=== PATIENT | female | born 1985 | race Caucasian/White ===

== ENCOUNTER 2018-04-21 07:30 | Emergency (ER) | payer BC ==
[~2018-04-21] VITALS: Ht 172.7 cm; Wt 81.2 kg
[2018-04-21 07:40] VITALS: TEMP 36.9; Ht 172.7 cm; Wt 81.2 kg
[2018-04-21] MEDS ORDERED: PRENTAB26 PO (08:02)
[2018-04-21] MEDS ORDERED: SYMIN160 INH (08:03)
[2018-04-21] MEDS ORDERED: VNTHFA/IN INH (08:03)
[2018-04-21 08:50] LABS: HEMATOCRIT 44.2 % (37-47); HEMOGLOBIN 15.2 g/dL (12.0-16.0); MEAN CELL VOLUME 91.3 fL (80-100); MEAN CORPUSCULAR HEMOGLOBIN 31.4 pg (25-34); MEAN CORPUSCULAR HGB CONC 34.4 g/dl (32-36); MEAN PLATELET VOLUME 11.3 fL (7.4-10.4); PLATELET COUNT 193 K/uL (130-400); RED CELL DISTRIBUTION WIDTH CV 12.5 % (11.5-14.5); RED CELL DISTRIBUTION WIDTH SD 42.1 fL (36.4-46.3); WHITE BLOOD COUNT 6.49 K/uL (4.8-10.8)
[2018-04-21 09:10] LABS: CALCIUM 9.5 mg/dl (8.5-10.1); CREATININE 1.01 mg/dl (0.60-1.20); POTASSIUM 3.5 mmol/L (3.5-5.1)
--- NOTE | 2018-04-21 10:10 | DIAGNOSTIC IMAGING REPORT ---
ULTRASOUND CLINICAL HISTORY: with vaginal bleeding. History of ectopic . COMPARISON STUDY: No previous studies for comparison. TECHNIQUE: Transabdominal and transvaginal sonography of the pelvis was performed. FINDINGS: The uterus measures 9.4 x 5 x 4.2 cm. The endometrium is thickened, measuring 2.1 cm in thickness. No intrauterine gestational sac is identified. The left ovary was not visualized. The right ovary is normal, measuring 2.7 x 2.6 x 1.9 cm. There is color flow within the right ovary. There is a possible right ovarian corpus luteal cyst. No adnexal masses were identified. IMPRESSION: 1. No intrauterine gestational sac identified. Thickened endometrium. Given positive test, differential considerations include a normal early intrauterine gestation, sonographically occult ectopic and missed spontaneous . Correlation with beta hCG levels is recommended. 2. Nonvisualization of the left ovary. 3. Suspected right ovarian corpus luteal cyst. Electronically signed by: Sung Ahn M.D. 04/21/2018 10:08 AM Dictated Date/Time: 04/21/2018 10:04 AM
--- NOTE | 2018-04-21 11:11 | EMERGENCY ROOM VISIT NOTE ---
ED Visit Note First contact with patient: 07:47 CHIEF COMPLAINT: 5 weeks , vaginal discharge this morning HISTORY OF PRESENT ILLNESS: Patient is a 32-year-old female with past medical history significant for asthma, Ab1 who presents emergency department for evaluation of brown watery vaginal discharge that started acutely this morning. Patient reports that her last menstrual period was 03/17/18. She had a positive home test at home and at her clip loading machine feeder. They have been following her serum hCG levels and it was 1361 04/19/2018. She does have a history of an ectopic, unknown side, which was treated with methotrexate she reports this was roughly 5 years ago. 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 She had some spotting earlier this week but her clip loading machine feeder was not concerned. This morning, she had a purpleish brown watery discharge with weightbearing. She is wearing a panty liner. She denies any real significant pelvic discomfort. She feels some pulling on both the right and the left, but nothing really localized. She rates her discomfort a 2/10. She denies any urinary symptoms. She reports that her blood type is O+. REVIEW OF SYSTEMS: Review of systems as per HPI. All other systems reviewed were negative. 10 systems reviewed. PMH: Electronic medical records are reviewed and summarized as above/below. See Problem List. SOCIAL HISTORY: Patient lives at home with her family. Employed. She does not smoke. PHYSICAL EXAM: Vital Signs: Reviewed Nurse's notes. CONSTITUTIONAL: Patient is a well-appearing 32-year-old female who is awake and alert and in no acute distress. EYES: Pupils equal, round, reactive to light and accommodation. EOMs intact without nystagmus. Sclera are anicteric. ENT: Tympanic membranes intact, with normal landmarks. External canals are clear. Oral and nasopharynx are clear. Mucous membranes are moist, no lesions , tongue and gums appear normal. CARDIOVASCULAR: Regular rate and rhythm, with normal S1 and S2, no murmur or gallop or rub is heard. No carotid bruits auscultated. No JVD. Peripheral pulses easily palpable. RESPIRATORY: Breath sounds equal and clear to auscultation without wheezes, rales, or rhonchi heard. Full and equal chest expansion without accessory muscle use or retractions. ABDOMEN: Bowel sounds are present. Abdomen is soft, nondistended, nontender to percussion or palpation throughout. No guarding, rebound or rigidity. INTEGUMENTARY: No lesions or rash, normal skin turgor. LYMPH: No lymphadenopathy. EMERGENCY DEPARTMENT COURSE: The patient was seen and evaluated as above. She has a history of an early ectopic treated with methotrexate. She has been followed by her clip loading machine feeder with hCG levels, and is scheduled to have another hCG checked in 48 hours. She has developed some abdominal watery discharge with wiping this morning. She has some pulling in the right lower abdomen but no localized tenderness to palpation on exam. IV lock was initiated and laboratory studies were collected. CBC, BMP, quantitative hCG, urinalysis and type and Rh were drawn. Pelvic ultrasound was ordered. Laboratory studies revealed a normal white count. H&H is not indicative of anemia. Electrolytes are within normal limits. Her quantitative hCG is 3339. Blood type is O+. Urinalysis notes 2+ occult blood, but no RBCs, small amount of leuk esterase and WBCs. There is 2+ bacteria, but greater than 30 epithelial cells which is likely indicative of contamination. Urine culture was ordered and is pending however. Pelvic ultrasound was obtained. There was no intrauterine gestation sac identified. Differential diagnoses included normal early intrauterine gestation, sonographically occluded ectopic or a missed spontaneous . She did also have a small suspected corpus luteal cyst on the right. No other adnexal masses were identified. All laboratory and diagnostic imaging studies were reviewed with the patient at length. She has been followed by gynecology. Her hCG levels do appear to be increasing appropriately. She has a benign abdominal exam, and does not have any findings on ultrasound to identify an ectopic at this time. Close follow- up with her clip loading machine feeder was reinforced. She has an appointment to have an hCG level checked again in 48 hours. Ectopic and bleeding precautions were outlined with the patient at length. The patient was discharged home, with strict instructions to follow-up with [facility] as she has scheduled. Differential diagnoses entertained included implantation bleed, missed , spontaneous , subchorionic hemorrhage, menses, ectopic , among others. Medication reconciliation: I attest that I have personally reviewed the patient' s current medication list. Blood pressure screening : Patient was found to have normal blood pressure on screening and does not require follow-up. ULTRASOUND CLINICAL HISTORY: with vaginal bleeding. History of ectopic . COMPARISON STUDY: No previous studies for comparison. TECHNIQUE: Transabdominal and transvaginal sonography of the pelvis was performed. FINDINGS: The uterus measures 9.4 x 5 x 4.2 cm. The endometrium is thickened, measuring 2.1 cm in thickness. No intrauterine gestational sac is identified. The left ovary was not visualized. The right ovary is normal, measuring 2.7 x 2.6 x 1.9 cm. There is color flow within the right ovary. There is a possible right ovarian corpus luteal cyst. No adnexal masses were identified. IMPRESSION: 1. No intrauterine gestational sac identified. Thickened endometrium. Given positive test, differential considerations include a normal early intrauterine gestation, sonographically occult ectopic and missed spontaneous . Correlation with beta hCG levels is recommended. 2. Nonvisualization of the left ovary. 3. Suspected right ovarian corpus luteal cyst. Problem List Medical Problems: (1) Asthma Status: Chronic Surgical Problems: (1) History of section Status: Resolved Current/Historical Medications Scheduled Budesonide/Formoterol Fumarate (Symbicort 160/4.5 Inhaler ), 2 PUFFS INH BID Multivit/Min/Iron/Fol Ac/Pren ( Vitamin), 1 TAB PO DAILY Scheduled PRN Albuterol Hfa (Ventolin Hfa), 2 PUFFS INH Q6H PRN for SOB/Wheezing Allergies Coded Allergies: No Known Allergies (Unverified , 04/21/18) Vital Signs Date Time Temp Pulse Resp B/P (MAP) Pulse Ox O2 Delivery O2 Flow Rate FiO2 04/21/18 11:33 86 139/74 97 04/21/18 09:58 84 18 110/86 97 Room Air 04/21/18 07:40 36.9 90 18 145/84 95 Room Air Laboratory Results 04/21/18 08:28 04/21/18 08:28 Test 04/21/18 08:25 04/21/18 08:28 Urine Color YELLOW Urine Appearance CLOUDY (CLEAR) Urine pH 7.0 (4.5-7.5) Urine Specific [place] 1.023 (1.000-1.030) Urine Protein NEG (NEG) Urine Glucose (UA) NEG (NEG) Urine Ketones NEG (NEG) Urine Occult Blood 2+ (NEG) Urine Nitrite NEG (NEG) Urine Bilirubin NEG (NEG) Urine Urobilinogen NEG (NEG) Urine Leukocyte Esterase SMALL (NEG) Urine WBC (Auto) 5-10 /hpf (0-5) Urine RBC (Auto) 0-4 /hpf (0-4) Urine Hyaline Casts (Auto) 0 /lpf (0-5) Urine Epithelial Cells (Auto) >30 /lpf (0-5) Urine Bacteria (Auto) 2+ (NEG) Urine Pathogenic Casts /lpf (0) Urine Yeast (Auto) (NONE PRSENT) Red Blood Count 4.84 M/uL (4.2-5.4) Mean Corpuscular Volume 91.3 fL (80-100) Mean Corpuscular Hemoglobin 31.4 pg (25-34) Mean Corpuscular Hemoglobin Concent 34.4 g/dl (32-36) RDW Standard Deviation 42.1 fL (36.4-46.3) RDW Coefficient of Variation 12.5 % (11.5-14.5) Mean Platelet Volume 11.3 fL (7.4-10.4) Anion Gap 8.0 mmol/L (3-11) Est Creatinine Clear Calc Drug Dose 89.4 ml/min Estimated GFR () 85.3 Estimated GFR (Non- 73.6 BUN/Creatinine Ratio 7.5 (10-20) Calcium Level 9.5 mg/dl (8.5-10.1) Human Chorionic Gonadotropin, Quant 3339 mIU/mL Departure Information Impression Primary Impression: Vaginal bleeding affecting early Patient Instructions My [facility] Additional Instructions Acetaminophen(Tylenol) may be used for fever or pain. Use 1000mg every six hours as needed. Avoid using more than 3000mg in a 24 hour period. Rest and avoid any heavy lifting or strenuous activity. Strict vaginal rest-no tampons, douching or intercourse. Drink plenty of fluids. Diet as tolerated. Follow up with [facility] on Thursday as scheduled. Return to the ED for worsening pain, heavier bleeding (soaking a pad in less than one hour, passing clots larger than your fist), lightheadedness, dizziness , passing out, worsening of your condition or as needed.
[2018-04-21 11:33] VITALS: BP 139/74; PULSE 86; O2SAT 97
== END 2018-04-21 11:33 | disposition home or self-care (01) ==
LOC: C.EDB 07:32 → C.EDA 11:33
DX: O20.8 Other hemorrhage in early pregnancy (principal); J45.909 Unspecified asthma, uncomplicated